=== PATIENT | male | born 1960 | race Caucasian/White ===

== ENCOUNTER 2021-11-23 16:51 | Inpatient (IN) | payer OTHER ==
[~2021-11-23] VITALS: Ht 167.6 cm; Wt 62.8 kg
[2021-11-23 18:04] LABS: BASOPHILS ABSOLUTE AUTO 0.01 K/mm3 (0.00-0.23); BASOPHILS PERCENT AUTO 0 % (0-2); EOSINOPHILS ABSOLUTE AUTO 0.04 K/mm3 (0.00-0.68); EOSINOPHILS PERCENT AUTO 1 % (0-6); Hematocrit 38.6 % (37.0-53.0); Hemoglobin 13.4 g/dL (13.5-17.5); IMMATURE GRAN ABSOLUTE AUTO 0.01 K/mm3 (0.00-0.10); IMMATURE GRAN PERCENT AUTO 0 % (0-1); LYMPHOCYTES PERCENT AUTO 17 % (21-46); MONOCYTES ABSOLUTE AUTO 0.49 K/mm3 (0.16-1.47); MONOCYTES PERCENT AUTO 8 % (4-13); Mean Corpuscular HGB 33.5 pg (26.0-34.0); Mean Corpuscular HGB Conc 34.7 g/dL (31.5-36.5); Mean Corpuscular Volume 97 fL (80-100); Mean Platelet Volume 11.5 fL (9.1-12.4); NEUTROPHILS ABSOLUTE AUTO 4.47 K/mm3 (1.96-9.15); NEUTROPHILS PERCENT AUTO 74 % (41-73); Platelet Count 78 K/mm3 (150-400); RDW Coefficient Variation 11.7 % (11.7-14.2); RDW Standard Deviation 41.3 fL (35.1-46.3); White Blood Cell Count 6.02 K/mm3 (4.00-11.30)
[2021-11-23 18:14] LABS: Albumin, Blood 3.6 g/dL (3.4-5.0); Bilirubin, Total 1.3 mg/dL (0.1-1.0); Bun/Creatinine Ratio 16.2 (12.0-20.0); Calcium, Blood 9.9 mg/dL (8.5-10.1); Creatinine, Blood 0.62 mg/dL (0.60-1.20); Globulin, Blood 3.7 g/dL (2.2-4.0); Potassium, Blood 3.7 mmol/L (3.5-5.5); Total Protein, Blood 7.3 g/dL (6.4-8.2)
[2021-11-23 21:15] LABS: U Amphetamine Screen Not Detected; U Barbituate Screen Not Detected; U Benzodiazapine Screen DETECTED; U Buprenorphine Screen Not Detected; U Cannabinoids Screen Not Detected; U Cocaine Screen Not Detected; U Methadone Screen Not Detected; U Methamphetamine Screen Not Detected; U Opiates Screen Not Detected; U Oxycodone Screen Not Detected; U Phencyclidine Screen Not Detected; U Propoxyphene Screen Not Detected
[2021-11-23 21:20] LABS: Magnesium, Blood 1.7 mg/dL (1.6-2.4); Thyroid Stimulating Hormone 1.88 uIU/mL (0.360-4.800)
[2021-11-24 04:47] LABS: BASOPHILS ABSOLUTE AUTO 0.01 K/mm3 (0.00-0.23); BASOPHILS PERCENT AUTO 0 % (0-2); EOSINOPHILS PERCENT AUTO 2 % (0-6); Hematocrit 40.3 % (37.0-53.0); Hemoglobin 13.6 g/dL (13.5-17.5); IMMATURE GRAN ABSOLUTE AUTO 0.02 K/mm3 (0.00-0.10); IMMATURE GRAN PERCENT AUTO 1 % (0-1); LYMPHOCYTES ABSOLUTE AUTO 0.71 K/mm3 (0.84-5.20); LYMPHOCYTES PERCENT AUTO 17 % (21-46); MONOCYTES ABSOLUTE AUTO 0.35 K/mm3 (0.16-1.47); MONOCYTES PERCENT AUTO 8 % (4-13); Mean Corpuscular HGB 33.3 pg (26.0-34.0); Mean Corpuscular HGB Conc 33.7 g/dL (31.5-36.5); Mean Corpuscular Volume 99 fL (80-100); Mean Platelet Volume 11.3 fL (9.1-12.4); NEUTROPHILS ABSOLUTE AUTO 2.96 K/mm3 (1.96-9.15); NEUTROPHILS PERCENT AUTO 71 % (41-73); Platelet Count 65 K/mm3 (150-400); RDW Coefficient Variation 11.8 % (11.7-14.2); RDW Standard Deviation 42.6 fL (35.1-46.3); Red Blood Cell Count 4.09 M/mm3 (4.30-5.90); White Blood Cell Count 4.15 K/mm3 (4.00-11.30)
[2021-11-24 05:14] LABS: International Normalized Ratio 1.15
[2021-11-24 05:31] LABS: Albumin, Blood 3.3 g/dL (3.4-5.0); Albumin/Globulin Ratio 0.9 (0.8-1.8); Bilirubin, Total 1.6 mg/dL (0.1-1.0); Bun/Creatinine Ratio 12.3 (12.0-20.0); Calcium, Blood 9.3 mg/dL (8.5-10.1); Creatinine, Blood 0.65 mg/dL (0.60-1.20); Globulin, Blood 3.5 g/dL (2.2-4.0); Magnesium, Blood 2.2 mg/dL (1.6-2.4); Potassium, Blood 3.5 mmol/L (3.5-5.5); Total Protein, Blood 6.8 g/dL (6.4-8.2)
--- NOTE | 2021-11-24 06:29 | NUR ---
PT. WAS BROUGHT INTO ICU LAST NIGHT AT 2030. PT. WAS RESTLESS AND AGITATED, HAVING VISUAL AND AUDITORY HALLUCINATIONS. PT. IS ONLY ORIENTED TO SELF AT TIMES AND OTHER TIMES NOT ORIENTED AT ALL. PT. URINATED ON HIMSELF SO BEDDING WAS CHANGED AND A CONDOM CATHETER WAS PLACED, IT IS PATENT AND DRAINING WELL. PT. HAS CIWA SCORES ORDERED AND WAS HIGH 34 OVERNIGHT. 8MG OF ATIVAN WAS GIVEN OVERNIGHT. PRECEDEX WAS STARTED, AND WORKED WELL TO CALM PT, BUT HAD TO BE TURNED OFF DUE TO PT. BRADYCARDIA OF LOW 40S. LAST CIWA SCORE WAS 19, PT WAS GIVEN ATIVAN AROUND 5 AM AND IS RESTING COMFORTABLY AT THIS TIME.
--- NOTE | 2021-11-24 07:15 | NUR ---
TOOK OVER CARE OF PT AT 0700. PT RESTING ON RA, WITH D5 1/2 NS W/20KCL INFUSING AT 150ML/HR
--- NOTE | 2021-11-24 18:51 | NUR ---
SUMMARY NEURO: PT MATCH-E-BE-NASH-SHE-WISH BAND AND SOMETIMES MISUNDERSTANDS QUESTIONS BUT IS MORE ALERT. A/OX4. TREMORS STILL PRESEMT WITH ARMS EXTENDED. CARD: SINUS KATERINE, HR LOW 40 BUT ASYMPTOMATIC. PULSES PALPABLE. GI: HYPOACTIVE BOWEL SOUNDS. ; INTERMITTENT INCONTINENCE BUT IMPROVING THROUGHOUT THE DAY. LUNGS: CLEAR BUT DIMINISHED BASES, ON RA LAST DOSE OF 2MG ATIVAN ON THIS THIST WAS AROUND 1445
--- NOTE | 2021-11-24 20:10 | NUR ---
ASSUMED CARE AT 1900 PATIENT IS ALERT AND ORIENTED X2-3, KNOWS MONTH, SELF, AND THAT HE IS IN THE HOSPITAL. UNABLE TO STATE YEAR OR CITY. FOLLOWS COMMANDS AND IS COOPERATIVE WITH CARE. CIWA OF 12, TREMORS PRESENT AT REST AND PATIENT REMAINS CONFUSED. 02 SATS 97% ON RA, DENIES SOB, LS CLEAR T/O. HR SB-SR 40s-60s. BP STABLE, PATIENT DENIES CP/PRESSURE. INCONTINENT, BRIEF CHANGED. PATIENT ABLE TO REPOSITION SELF IN BED. CALL LIGHT IN REACH, SEE SHIFT ASSESSMENT FOR MORE INFORMATION.
[2021-11-25 03:50] LABS: BASOPHILS ABSOLUTE AUTO 0.01 K/mm3 (0.00-0.23); BASOPHILS PERCENT AUTO 0 % (0-2); EOSINOPHILS PERCENT AUTO 2 % (0-6); Hematocrit 39.4 % (37.0-53.0); Hemoglobin 13.5 g/dL (13.5-17.5); IMMATURE GRAN ABSOLUTE AUTO 0.02 K/mm3 (0.00-0.10); IMMATURE GRAN PERCENT AUTO 0 % (0-1); LYMPHOCYTES ABSOLUTE AUTO 1.09 K/mm3 (0.84-5.20); LYMPHOCYTES PERCENT AUTO 21 % (21-46); MONOCYTES ABSOLUTE AUTO 0.61 K/mm3 (0.16-1.47); MONOCYTES PERCENT AUTO 12 % (4-13); Mean Corpuscular HGB 33.7 pg (26.0-34.0); Mean Corpuscular HGB Conc 34.3 g/dL (31.5-36.5); Mean Corpuscular Volume 98 fL (80-100); Mean Platelet Volume 11.1 fL (9.1-12.4); NEUTROPHILS ABSOLUTE AUTO 3.42 K/mm3 (1.96-9.15); NEUTROPHILS PERCENT AUTO 65 % (41-73); Platelet Count 93 K/mm3 (150-400); RDW Coefficient Variation 11.8 % (11.7-14.2); RDW Standard Deviation 42.7 fL (35.1-46.3); Red Blood Cell Count 4.01 M/mm3 (4.30-5.90); White Blood Cell Count 5.25 K/mm3 (4.00-11.30)
[2021-11-25 04:07] LABS: Magnesium, Blood 1.8 mg/dL (1.6-2.4)
[2021-11-25 04:08] LABS: Albumin, Blood 3.2 g/dL (3.4-5.0); Bilirubin, Total 1.4 mg/dL (0.1-1.0); Bun/Creatinine Ratio 7.3 (12.0-20.0); Calcium, Blood 8.8 mg/dL (8.5-10.1); Creatinine, Blood 0.69 mg/dL (0.60-1.20); Globulin, Blood 3.3 g/dL (2.2-4.0); Potassium, Blood 3.6 mmol/L (3.5-5.5); Total Protein, Blood 6.5 g/dL (6.4-8.2)
--- NOTE | 2021-11-25 05:55 | NUR ---
SHIFT SUMMARY PATIENT ALERT AND ORIENTED X3-4. ABLE TO STATE SELF, YEAR, MONTH, AND CITY. FORGETFUL AND PULLS AT THINGS OCCASIONALLY. CIWA OF 7, TREMORS REMIAN PRESENT WITH ARM EXTENDED. MEDICATED THROUGH THE NIGHT PER EMAR. 02 SATS >95% WHILE AWAKE, 2L NC WHILE SLEEPING. HR SB 40-60, BP STABLE. PATIENT INCONTINENT OF BLADDER MOST THE TIME, ATTENDS IN PLACE. ABLE TO REPOSITION SELF. CALL LIGHT IN REACH.
--- NOTE | 2021-11-25 08:32 | NUR ---
ASSUMED CARE REPORT FROM SOTERO ROBLERO AT 0700. PT RESTING IN BED. A&OX 2-3, NEEDS OCCASIONAL REORIENTATION. FOLLOWS SIMPLE COMMANDS. COOPERATIVE c CARE. CIWA 7. TREMORS, DENIES HALLUCINATIONS, MANCILLA, N/V. ABLE TO REPOSITION SELF IN BED INDEPENDENTLY, FEEDS SELF. D51/2NS c KCL INFUSING AT 150 ML/HR. WILL CONTINUE TO MONITOR.
--- NOTE | 2021-11-25 15:06 | NUR ---
SHIFT SUMMARY/TRANSFER TO MEDICAL FLOOR WA 5-7 THIS SHIFT. TREMORS, SLIGHT CONFUSION, IMPROVED THROUGHOUT SHIFT. COOPERATIVE c CARE. OCCASIONALLY IMPULSIVE AND DOES NOT WAIT FOR STAFF BUT FOLLOWS DIRECTIONS WHEN STAFF IN ROOM. ONE PERSON ASSIST TO TOILET. UNSTEADY GAIT. TOLERATING DIET WELL, FED SELF. VSS. REPORT TO DEBORA ROBLERO, ALL BELONGINGS SENT c PT TO 337.
--- NOTE | 2021-11-25 15:08 | NUR ---
Patient motions to me that he wants to talk as I walk by his rm. He immediately tells me about his struggles with alcohol and the problems medically and relationally it has caused. He explains that he is planning on going to a live-in treatment program and that he would like prayer for his family and himself. I gladly provide prayer as well as therapeutic listening, gentle counselor dormitory and guidance and companionship. Pt responds well and is clearly moved by the prayer. I will continue to remain available to patient and family.
--- NOTE | 2021-11-25 15:32 | NUR ---
PT ARRIVED TO THE MEDICAL FLOOR FROM ICU VIA WHEELCHAIR A/OX3. PT IS EASILY DIRECTED AT THIS TIME. PT IS UP AMBULATING IN THE ROOM UNSTEDY ON HIS. UP AND INTO THE BATHROOM. THE PT WAS ORIENTED TO THE ROOM LAYOUT AND CALL SYSTEM. CALL LIGHT IN REACH. WILL CONTINUE TO MONITOR AND ASSESS FOR CHANGES
--- NOTE | 2021-11-25 17:07 | NUR ---
PT IS A/OX3, PLEASANT AND COOPERATIVE. THE PT IS UP WITH ASSIST IN HIS ROOM UNSTEADY ON HIS FEET. THE PT HAS MILD TREMORS AT THIS TIME. CWAW SCORE PER THIS RN AT 4. THE PT APPEARS TO BE BREATHING EASILY ON RA AT THIS TIME. CALL LIGHT IN REAC, WILL CONTINUE TO MONITOR AND ASSESS FOR CHANGES
--- NOTE | 2021-11-26 04:57 | NUR ---
PT INDEPENDENT IN ROOM, ALERT AND ORIENTED. PT REPORTS SHAKES AND ANXIETY, LIBRIUM GIVEN. PT SLEPT ALL NIGHT WITH NO ACUTE CHANGES. AT 0400 PT WAS CONFUSED WITH SOILED UNDERWEAR. PT WAS REORIENTED, CHANGED AND LIBRIUM WAS GIVEN.
[2021-11-26 05:45] LABS: BASOPHILS ABSOLUTE AUTO 0.02 K/mm3 (0.00-0.23); BASOPHILS PERCENT AUTO 0 % (0-2); EOSINOPHILS ABSOLUTE AUTO 0.08 K/mm3 (0.00-0.68); EOSINOPHILS PERCENT AUTO 1 % (0-6); Hematocrit 40.2 % (37.0-53.0); Hemoglobin 13.6 g/dL (13.5-17.5); IMMATURE GRAN ABSOLUTE AUTO 0.03 K/mm3 (0.00-0.10); IMMATURE GRAN PERCENT AUTO 1 % (0-1); LYMPHOCYTES ABSOLUTE AUTO 1.35 K/mm3 (0.84-5.20); LYMPHOCYTES PERCENT AUTO 22 % (21-46); MONOCYTES ABSOLUTE AUTO 0.95 K/mm3 (0.16-1.47); MONOCYTES PERCENT AUTO 16 % (4-13); Mean Corpuscular HGB 33.1 pg (26.0-34.0); Mean Corpuscular HGB Conc 33.8 g/dL (31.5-36.5); Mean Corpuscular Volume 98 fL (80-100); Mean Platelet Volume 10.5 fL (9.1-12.4); NEUTROPHILS PERCENT AUTO 60 % (41-73); Platelet Count 108 K/mm3 (150-400); RDW Coefficient Variation 11.9 % (11.7-14.2); RDW Standard Deviation 42.3 fL (35.1-46.3); Red Blood Cell Count 4.11 M/mm3 (4.30-5.90); White Blood Cell Count 6.03 K/mm3 (4.00-11.30)
[2021-11-26 05:58] LABS: Bun/Creatinine Ratio 14.7 (12.0-20.0); Calcium, Blood 9.2 mg/dL (8.5-10.1); Creatinine, Blood 0.75 mg/dL (0.60-1.20); Potassium, Blood 3.5 mmol/L (3.5-5.5)
[2021-11-26] MEDS ORDERED: CHLO25 PO (11:59)
[2021-11-26] MEDS ORDERED: MULVITA PO (12:00)
--- NOTE | 2021-11-26 16:30 | NUR ---
PT DISCHARGED THE PT VERBALIZED UNDERSTANDING OF THE DC INSTRUCTIONS. THE PT WAS PICKED UP BY [facility] FROM [facility] AND RETURNED TO [facility]. A PRESCRIPTION FOR LIBRIUM WAS SENT WITH THE PT. THE PT DECLINED A WHEELCHAIR AND WALKED OUT WITH THE [facility] PT APPEARED STEADY ON HIS FEET BREATHING EASILY.
== END 2021-11-26 14:06 | disposition home or self-care (01) | DRG 897 ==
LOC: ER 16:51 → MEDS 20:37 → ICUW 20:37 → MEDS 11-25 15:22
PROVIDERS: Emergency Medicine; Internal Medicine; Nurse Practitioner Acute Care; ADMIT Internal Medicine
PROC: HZ2ZZZZ Detoxification Services for Substance Abuse Treatment (ICD-10-PCS; principal; 2021-11-23)
DX: F10.239 Alcohol dependence with withdrawal, unspecified (principal); D69.6 Thrombocytopenia, unspecified; R74.01 Elevation of levels of liver transaminase levels; E88.09 Other disorders of plasma-protein metabolism, not elsewhere classified; R00.1 Bradycardia, unspecified; R44.1 Visual hallucinations; K70.10 Alcoholic hepatitis without ascites; Z85.828 Personal history of other malignant neoplasm of skin; Z71.51 Drug abuse counseling and surveillance of drug abuser
CPT/HCPCS: 36415; 80048; 80053; 82140; 82550; 83690; 83735; 84443; 85025; 85610; 93005; 93010; 96374; 96376; 99285-25; A9270; C1751; J1650; J2060; J3360; J3411; J7030; J7040

== ENCOUNTER 2021-12-05 19:50 | Emergency (ER) | payer OTHER ==
[~2021-12-05] VITALS: Ht 167.6 cm; Wt 74.8 kg
[~2021-12-05 19:50] MED LIST: CHLO25 PO; MULVITA PO
[2021-12-05 21:35] LABS: Source, Urine Clean Catch
[2021-12-05 21:41] LABS: Bilirubin, Urine Neg (Neg); Blood, Urine Neg (Neg); Glucose Qualitative, Urine Neg (Neg); Ketones, Urine Neg (Neg); Leukocyte Esterase, Urine Neg (Neg); Nitrite, Urine Neg (Neg); Protein, Urine Neg (Neg); Urobilinogen, Urine NORM (Normal)
[2021-12-05 21:42] LABS: Appearance, Urine Clear (Clear); Color, Urine Yellow (P-Yellow)
[2021-12-05 21:43] LABS: BASOPHILS ABSOLUTE AUTO 0.06 K/mm3 (0.00-0.23); BASOPHILS PERCENT AUTO 1 % (0-2); EOSINOPHILS ABSOLUTE AUTO 0.12 K/mm3 (0.00-0.68); EOSINOPHILS PERCENT AUTO 1 % (0-6); Hematocrit 42.2 % (37.0-53.0); Hemoglobin 14.1 g/dL (13.5-17.5); IMMATURE GRAN ABSOLUTE AUTO 0.05 K/mm3 (0.00-0.10); IMMATURE GRAN PERCENT AUTO 1 % (0-1); LYMPHOCYTES ABSOLUTE AUTO 2.26 K/mm3 (0.84-5.20); LYMPHOCYTES PERCENT AUTO 23 % (21-46); MONOCYTES PERCENT AUTO 7 % (4-13); Mean Corpuscular HGB 33.3 pg (26.0-34.0); Mean Corpuscular HGB Conc 33.4 g/dL (31.5-36.5); Mean Corpuscular Volume 100 fL (80-100); Mean Platelet Volume 9.6 fL (9.1-12.4); NEUTROPHILS ABSOLUTE AUTO 6.64 K/mm3 (1.96-9.15); NEUTROPHILS PERCENT AUTO 68 % (41-73); Platelet Count 299 K/mm3 (150-400); RDW Standard Deviation 43.9 fL (35.1-46.3); Red Blood Cell Count 4.24 M/mm3 (4.30-5.90); White Blood Cell Count 9.83 K/mm3 (4.00-11.30)
[2021-12-05 22:02] LABS: Albumin, Blood 3.7 g/dL (3.4-5.0); Bilirubin, Total 0.7 mg/dL (0.1-1.0); Bun/Creatinine Ratio 26.5 (12.0-20.0); Calcium, Blood 9.3 mg/dL (8.5-10.1); Creatinine, Blood 0.76 mg/dL (0.60-1.20); Globulin, Blood 3.6 g/dL (2.2-4.0); Potassium, Blood 3.5 mmol/L (3.5-5.5); Total Protein, Blood 7.3 g/dL (6.4-8.2)
[2021-12-06] MEDS ORDERED: [UNRECOGNIZED DRUG - OTHER] PO (01:13)
[2021-12-06] MEDS ORDERED: B-1100 M2 PO (01:13)
== END 2021-12-06 01:24 | disposition home or self-care (01) ==
LOC: ER 19:50
PROVIDERS: Student in an Organized Health Care Education/Training Program
DX: G31.2 Degeneration of nervous system due to alcohol (principal); Z79.899 Other long term (current) drug therapy
CPT/HCPCS: 36415; 70450; 80053; 81003; 85025; A9270